=== PATIENT | female | born 1960 | race Caucasian/White ===

== ENCOUNTER 2018-03-10 19:12 | Emergency (ER) | payer MEDICAID ==
[~2018-03-10] VITALS: Ht 162.6 cm; Wt 65.8 kg
[~2018-03-10 19:12] MED LIST: BENA40TA2 PO; BUSP5TAB3 PO; HYDR25TA4 PO; INSU100V9 SUBCUT; INSU10VI4 SQ; METF-305 PO; OMEP40CA33 PO; SIMV40TA2 PO
[2018-03-10 19:16] VITALS: BP_SYST 151
[2018-03-10] MEDS ORDERED: KETOROLAC TROMETHAMINE 60 MG/2 ML VIAL IM ONE (19:30)
[2018-03-10] MEDS ORDERED: DIPH-TET-PERTUS Vaccine 0.5 ML VIAL (ADACEL) I.M. ONE (19:45)
[2018-03-10] MEDS ORDERED: LIDOCAINE 1% 10 MG/ML, 20 ML MDV INJ ONE (19:45)
[2018-03-10] MEDS ORDERED: BACITRACIN 1 GM OINT TP ONE (20:00)
[2018-03-10 20:20] VITALS: BP_SYST 153
== END 2018-03-10 20:20 | disposition home or self-care (01) ==
LOC: SED 19:12
DX: S90.851A Superficial foreign body, right foot, initial encounter (principal); I10 Essential (primary) hypertension; E11.9 Type 2 diabetes mellitus without complications; K21.9 Gastro-esophageal reflux disease without esophagitis; Z79.4 Long term (current) use of insulin; Z79.899 Other long term (current) drug therapy; W22.8XXA Striking against or struck by other objects, initial encounter; Y93.89 Activity, other specified; Y92.89 Other specified places as the place of occurrence of the external cause; Y99.8 Other external cause status
CPT/HCPCS: 73620; 90471; 90715; 96372; 99284; J1885; J2001

== ENCOUNTER 2019-03-20 21:47 | Emergency (ER) | payer MEDICAID ==
[~2019-03-20] VITALS: Ht 162.6 cm; Wt 68.0 kg
[~2019-03-20 21:47] MED LIST changes: -BENA40TA2 PO; +BENA40TA8 PO; -METF-305 PO; +METF-381 PO
[2019-03-20 21:52] VITALS: BP_SYST 164
[2019-03-20 22:32] LABS: HEMATOCRIT 30.6 % (36-48); HEMOGLOBIN 10.6 g/dL (12.0-16.0); MEAN CORPUSCULAR HEMOGLOBIN 29 pg (27-31); MEAN CORPUSCULAR HGB CONC 35 % (32-36); MEAN CORPUSCULAR VOLUME 83 fL (79.0-98.0); PLATELET COUNT (AUTO) 340 K/uL (130-430); RED CELL DISTRIBUTION WIDTH 14.8 % (9.0-15.0); WHITE BLOOD COUNT (AUTO) 11.9 K/uL (4.8-10.8)
[2019-03-20 22:34] LABS: CALCIUM 9.4 mg/dL (8.4-11.0); CREATININE 0.84 mg/dL (0.55-1.30); POTASSIUM 3.4 mmol/L (3.5-5.1)
[2019-03-20 22:39] LABS: ALBUMIN 3.3 g/dL (3.4-4.8); TOTAL BILIRUBIN 0.2 mg/dL (0.0-1.0)
[2019-03-20 22:53] LABS: BAND % (MANUAL) 2 % (0-6); BASOPHILS % (MANUAL) 0 % (0-2); EOSINOPHILS % (MANUAL) 4 % (0-7); LYMPHOCYTES % (MANUAL) 46 % (20-46); MONOCYTES % (MANUAL) 6 % (0-11)
[2019-03-20 23:22] LABS: BILIRUBIN,URINE NEGATIVE (NEGATIVE); BLOOD, URINE TRACE (NEGATIVE); CLARITY/URINE CLEAR (CLEAR); COLOR,URINE YELLOW (YELLOW); GLUCOSE,URINE NEGATIVE (NEGATIVE); KETONES,URINE NEGATIVE (NEGATIVE); LEUKOCYTE ESTERASE ,URINE NEGATIVE (NEGATIVE); NITRITE, URINE NEGATIVE (NEGATIVE); PROTEIN URINE 1+ (NEGATIVE); UROBILINOGEN,URINE 0.2 (0.2-1.0)
[2019-03-20 23:25] LABS: BACTERIA,URINE RARE /HPF (None Seen); WBC,URINE 0-3 /HPF (0-3)
[2019-03-21] MEDS ORDERED: MAG-AL HYDROX/SIMETH 30 ML UDC PO ONE (00:45)
[2019-03-21] MEDS ORDERED: BELLADONNA ALKALOIDS/PHENOBARB 5 ML UDC PO ONE ×2 (00:45)
[2019-03-21] MEDS ORDERED: LIDOCAINE VISCOUS 2%, 15 ML UDC MM ONE (00:45)
[2019-03-21 01:10] VITALS: BP_SYST 164
== END 2019-03-21 01:10 | disposition home or self-care (01) ==
LOC: SED 21:47
DX: K29.70 Gastritis, unspecified, without bleeding (principal); R51 Headache; R11.0 Nausea; E11.9 Type 2 diabetes mellitus without complications; K21.9 Gastro-esophageal reflux disease without esophagitis; I10 Essential (primary) hypertension; E78.00 Pure hypercholesterolemia, unspecified; Z85.038 Personal history of other malignant neoplasm of large intestine; Z79.899 Other long term (current) drug therapy
CPT/HCPCS: 36415; 76700; 80053; 81000; 83690; 85007; 85027; 93005; 99284; J2001

== ENCOUNTER 2019-12-27 19:48 | Emergency (ER) | payer MEDICAID ==
[~2019-12-27] VITALS: Ht 162.6 cm; Wt 68.0 kg
[2019-12-27 20:01] VITALS: BP_SYST 157
--- NOTE | 2019-12-27 20:02 | NUR ---
Patient triaged and placed in waiting room. VS checked and patient appears in no acute distress at this time. Accompanied by son, awaiting available bed, and MD notified of need for MSE.
[2019-12-27] MEDS ORDERED: LOSA100T3 PO (20:06)
[2019-12-27] MEDS ORDERED: ASPI-1153 PO (20:07)
--- NOTE | 2019-12-27 22:11 | NUR ---
Pt ambulatory to bed 3 for evaluation
--- NOTE | 2019-12-27 22:45 | NUR ---
Dr. Baker at bedside.
[2019-12-27 23:30] VITALS: BP_SYST 132
--- NOTE | 2019-12-27 23:30 | NUR ---
Patient given written and verbal discharge instructions and verbalizes understanding. ER MD discussed with patient the results and treatment provided. Patient in stable condition. ID arm band removed. No Rx given. Patient educated on pain management and to follow up with PMD. Pain Scale 0/10. Opportunity for questions provided and answered. Medication side effect fact sheet provided.
== END 2019-12-27 23:30 | disposition home or self-care (01) ==
LOC: SED 19:48
DX: B34.9 Viral infection, unspecified (principal); I10 Essential (primary) hypertension; E11.9 Type 2 diabetes mellitus without complications; K21.9 Gastro-esophageal reflux disease without esophagitis; E78.00 Pure hypercholesterolemia, unspecified; Z85.038 Personal history of other malignant neoplasm of large intestine; Z79.82 Long term (current) use of aspirin; Z79.899 Other long term (current) drug therapy
CPT/HCPCS: 36415; 71045; 86403; 87081; 99284

== ENCOUNTER 2020-03-14 00:01 | Emergency (ER) | payer MEDICAID ==
[~2020-03-14] VITALS: Ht 160 cm; Wt 68.0 kg
[~2020-03-14 00:01] MED LIST changes: +ASPI-1153 PO; -BENA40TA8 PO; -BUSP5TAB3 PO; -INSU10VI4 SQ; +LOSA100T3 PO; -SIMV40TA2 PO
[2020-03-14 00:25] VITALS: BP_SYST 179
[2020-03-14 01:17] LABS: BASOPHILS % (AUTO) 0.3 % (0.0-2.0); EOSINOPHILS # (AUTO) 0.1 K/uL (0.0-0.4); EOSINOPHILS % (AUTO) 1.2 % (0.0-4.0); HEMATOCRIT 29.4 % (36-48); HEMOGLOBIN 10.6 g/dL (12.0-16.0); LYMPHOCYTES # (AUTO) 2.9 K/uL (1.0-5.5); LYMPHOCYTES % (AUTO) 27.3 % (20.5-51.5); MEAN CORPUSCULAR HEMOGLOBIN 29 pg (27-31); MEAN CORPUSCULAR HGB CONC 36 % (32-36); MEAN CORPUSCULAR VOLUME 81 fL (79.0-98.0); MONOCYTES # (AUTO) 0.6 K/uL (0.0-1.0); MONOCYTES % (AUTO) 5.2 % (1.7-9.3); PLATELET COUNT (AUTO) 303 K/uL (130-430); RED BLOOD CELL COUNT(AUTO) 3.64 MIL/uL (4.2-6.2); RED CELL DISTRIBUTION WIDTH 14.8 % (9.0-15.0); WHITE BLOOD COUNT (AUTO) 10.6 K/uL (4.8-10.8)
[2020-03-14] MEDS ORDERED: LIP20 PO (01:23)
[2020-03-14 01:27] LABS: CALCIUM 8.9 mg/dL (8.4-11.0); CREATININE 0.88 mg/dL (0.55-1.30); POTASSIUM 3.5 mmol/L (3.5-5.1)
[2020-03-14 01:28] LABS: BILIRUBIN,URINE NEGATIVE (NEGATIVE); CLARITY/URINE CLEAR (CLEAR); COLOR,URINE YELLOW (YELLOW); GLUCOSE,URINE NEGATIVE (NEGATIVE); KETONES,URINE NEGATIVE (NEGATIVE); LEUKOCYTE ESTERASE ,URINE NEGATIVE (NEGATIVE); NITRITE, URINE NEGATIVE (NEGATIVE); PH,URINE 7.5 (5.0-8.0); PROTEIN URINE 2+ (NEGATIVE); UROBILINOGEN,URINE 0.2 (0.2-1.0)
[2020-03-14 01:29] LABS: BLOOD, URINE TRACE (NEGATIVE)
[2020-03-14] MEDS ORDERED: MAGNESIUM SULFATE 50 ML IV ONE (01:30)
[2020-03-14 01:33] LABS: ALBUMIN 3.2 g/dL (3.4-4.8); TOTAL BILIRUBIN 0.4 mg/dL (0.0-1.0)
[2020-03-14 01:33] LABS: BACTERIA,URINE FEW /HPF (None Seen); RBC,URINE 0-3 /HPF (0-3); WBC,URINE 0-3 /HPF (0-3)
[2020-03-14] MEDS ORDERED: POTASSIUM CHLORIDE 10 MEQ TAB.PRT.SR PO ONE (03:00)
[2020-03-14] MEDS ORDERED: NACL 0.9% 500 ML IV ONE (03:00)
[2020-03-14] MEDS ORDERED: NACL 0.9% 1,000 ML IV ONE (03:00)
[2020-03-14] MEDS ORDERED: NS 500 ML IV ONE (03:00)
[2020-03-14] MEDS ORDERED: POTASSIUM CHLORIDE 20 MEQ TAB.PRT.SR PO ONE (03:00)
[2020-03-14 04:04] VITALS: BP_SYST 154
== END 2020-03-14 04:04 | disposition home or self-care (01) ==
LOC: SED 00:01
DX: M25.562 Pain in left knee (principal); E87.1 Hypo-osmolality and hyponatremia; R94.31 Abnormal electrocardiogram [ECG] [EKG]; I10 Essential (primary) hypertension; E11.9 Type 2 diabetes mellitus without complications; K21.9 Gastro-esophageal reflux disease without esophagitis; E78.00 Pure hypercholesterolemia, unspecified; Z79.4 Long term (current) use of insulin; Z79.899 Other long term (current) drug therapy
CPT/HCPCS: 36415; 71045; 73564; 80053; 81000; 83880; 84484; 85025; 93005; 96365; 99285; J3475; J7030

== ENCOUNTER 2021-12-11 13:27 | Emergency (ER) | payer MEDICAID, SELFPAY ==
[~2021-12-11] VITALS: Ht 157.5 cm; Wt 68.0 kg
[~2021-12-11 13:27] MED LIST changes: -ASPI-1153 PO; +ASPI-1393 PO; +LIP20 PO; -OMEP40CA33 PO
[2021-12-11 15:12] VITALS: BP_SYST 143
--- NOTE | 2021-12-11 17:22 | NUR ---
SEEN BY DR. CALABRESE
[2021-12-11] MEDS ORDERED: CIPR500T5 PO (18:04)
[2021-12-11] MEDS ORDERED: IBUP-1969 PO (18:04)
[2021-12-11 18:24] VITALS: BP_SYST 143
--- NOTE | 2021-12-11 18:26 | NUR ---
Patient given written and verbal discharge instructions and verbalizes understanding. ER MD discussed with patient the results and treatment provided. Patient in stable condition. ID arm band removed. Rx of CIPRO, IBUPROFEN given. Patient educated on pain management and to follow up with PMD. Pain Scale 0/10. Opportunity for questions provided and answered. Medication side effect fact sheet provided.
== END 2021-12-11 18:24 | disposition home or self-care (01) ==
LOC: SED 13:27
DX: L02.611 Cutaneous abscess of right foot (principal); E11.9 Type 2 diabetes mellitus without complications; I10 Essential (primary) hypertension; K21.9 Gastro-esophageal reflux disease without esophagitis; Z79.82 Long term (current) use of aspirin; Z79.899 Other long term (current) drug therapy
CPT/HCPCS: 99283

== ENCOUNTER 2023-02-04 12:31 | Emergency (ER) | payer MEDICAID ==
[~2023-02-04] VITALS: Ht 167.6 cm; Wt 59.0 kg
[~2023-02-04 12:31] MED LIST changes: +BALANCED SALT IRRIG SOLN 15 ML IO ONE; +CIPR500T5 PO; +FLUORESCEIN SODIUM 1 MG OPHTHALMIC STRIP OP ONE; +IBUP-1969 PO; -LOSA100T3 PO; +LOSA100T4 PO; +TETRACAINE HCL/PF 0.5% OPHTHALMIC DROPS 4 ML OP ONE
[2023-02-04 12:35] VITALS: BP_SYST 150
[2023-02-04] MEDS ORDERED: ACETAMINOPHEN 500 MG TABLET PO ONE (14:30)
[2023-02-04] MEDS ORDERED: IBUPROFEN 600 MG TABLET PO ONE (14:30)
[2023-02-04] MEDS ORDERED: IBUP-1969 PO (14:51)
[2023-02-04 15:30] VITALS: BP_SYST 150
== END 2023-02-04 15:30 | disposition home or self-care (01) ==
LOC: SED 12:31
DX: H11.31 Conjunctival hemorrhage, right eye (principal); R51.9 Headache, unspecified; K21.9 Gastro-esophageal reflux disease without esophagitis; E11.9 Type 2 diabetes mellitus without complications; I10 Essential (primary) hypertension; Z79.4 Long term (current) use of insulin; Z79.899 Other long term (current) drug therapy
CPT/HCPCS: 99283

== ENCOUNTER 2023-12-26 22:15 | Emergency (ER) | payer MEDICAID ==
[~2023-12-26] VITALS: Ht 154.9 cm; Wt 70.8 kg
[~2023-12-26 22:15] MED LIST changes: -BALANCED SALT IRRIG SOLN 15 ML IO ONE; -FLUORESCEIN SODIUM 1 MG OPHTHALMIC STRIP OP ONE; +LOSA-415 PO; -LOSA100T4 PO; -TETRACAINE HCL/PF 0.5% OPHTHALMIC DROPS 4 ML OP ONE
[2023-12-26 22:25] VITALS: BP_SYST 166; PULSE 77; RESP 17; TEMP 96.9; O2SAT 98
[2023-12-26 23:17] LABS: BILIRUBIN,URINE NEGATIVE (NEGATIVE); CLARITY/URINE SL CLOUDY (CLEAR); COLOR,URINE YELLOW (YELLOW); GLUCOSE,URINE 3+ (NEGATIVE); KETONES,URINE NEGATIVE (NEGATIVE); LEUKOCYTE ESTERASE ,URINE 2+ (NEGATIVE); NITRITE, URINE NEGATIVE (NEGATIVE); PROTEIN URINE 1+ (NEGATIVE); UROBILINOGEN,URINE 0.2 (0.2-1.0)
[2023-12-26 23:42] LABS: BLOOD, URINE TRACE (NEGATIVE)
[2023-12-26 23:43] LABS: RBC,URINE 0-3 /HPF (0-3); WBC,URINE 80-100 /HPF (0-3)
[2023-12-26 23:44] LABS: BACTERIA,URINE MANY /HPF (None Seen); MUCUS,URINE None Seen /LPF (None Seen)
[2023-12-27] MEDS ORDERED: KETOROLAC TROMETHAMINE 60 MG/2 ML VIAL IM ONE
[2023-12-27] MEDS ORDERED: cefTRIAXone 1 GM in LIDOCAINE 1%, 20 ML MDV 2.1 ML IM ONE ×2
[2023-12-27] MEDS ORDERED: CIPR500T5 PO (00:32)
[2023-12-27 00:42] VITALS: BP_SYST 164; PULSE 68; RESP 20; TEMP 98.2; O2SAT 98
== END 2023-12-27 00:36 | disposition home or self-care (01) ==
LOC: SED 22:15
DX: N39.0 Urinary tract infection, site not specified (principal); R30.9 Painful micturition, unspecified; E11.9 Type 2 diabetes mellitus without complications; K21.9 Gastro-esophageal reflux disease without esophagitis; I10 Essential (primary) hypertension; Z85.038 Personal history of other malignant neoplasm of large intestine; Z79.899 Other long term (current) drug therapy
CPT/HCPCS: 99284; 81001; 87086; 81000; 96372; 81015; J0696; J1885; J2001

== ENCOUNTER 2024-02-05 12:19 | Emergency (ER) | payer MEDICAID ==
[~2024-02-05] VITALS: Ht 162.6 cm; Wt 69.4 kg
[2024-02-05 12:44] VITALS: BP_SYST 169; PULSE 88; RESP 17; TEMP 97; O2SAT 98
[2024-02-05] MEDS: KETOROLAC TROMETHAMINE 30 MG VIAL IM ONE (13:04)
[2024-02-05] MEDS ORDERED: TRAM50TA2 PO (13:35)
[2024-02-05] MEDS ORDERED: PRED50TA PO (13:35)
[2024-02-05] MEDS ORDERED: NAPR-688 PO (13:35)
[2024-02-05 14:10] VITALS: BP_SYST 169; PULSE 88; RESP 17; TEMP 97; O2SAT 98
== END 2024-02-05 14:13 | disposition home or self-care (01) ==
LOC: SED 12:19
DX: M54.30 Sciatica, unspecified side (principal); M25.551 Pain in right hip; E11.9 Type 2 diabetes mellitus without complications; I10 Essential (primary) hypertension; K21.9 Gastro-esophageal reflux disease without esophagitis; Z85.038 Personal history of other malignant neoplasm of large intestine; Z79.899 Other long term (current) drug therapy
CPT/HCPCS: 99283; 73502; 96372; J1885

== ENCOUNTER 2024-03-13 17:32 | Emergency (ER) | payer MEDICAID ==
[~2024-03-13] VITALS: Ht 160 cm; Wt 69.4 kg
[~2024-03-13 17:32] MED LIST changes: +NAPR-688 PO; +PRED50TA PO; +TRAM50TA2 PO
[2024-03-13 17:35] VITALS: BP_SYST 149; PULSE 87; RESP 18; TEMP 98.4; O2SAT 99
[2024-03-13] MEDS ORDERED: IBUP-1969 PO (18:28)
== END 2024-03-13 18:40 | disposition home or self-care (01) ==
LOC: SED 17:32
DX: S93.401A Sprain of unspecified ligament of right ankle, initial encounter (principal); S93.601A Unspecified sprain of right foot, initial encounter; E11.9 Type 2 diabetes mellitus without complications; I10 Essential (primary) hypertension; K21.9 Gastro-esophageal reflux disease without esophagitis; X50.1XXA Overexertion from prolonged static or awkward postures, initial encounter; Y93.89 Activity, other specified; Y92.89 Other specified places as the place of occurrence of the external cause; Y99.8 Other external cause status
CPT/HCPCS: 99284